=== PATIENT | male | born 1980 | race Two or more races ===

== ENCOUNTER 2022-10-24 12:12 | Emergency (ER) | payer OTHER, SELFPAY ==
--- NOTE | ~2022-10-24 | XR_ITS ---
EXAMINATION: XR CHEST CLINICAL INFORMATION: Chest pain and SOB COMPARISON: Chest 12/23/2017 TECHNIQUE: Frontal view of the chest was obtained. FINDINGS: No significant abnormality is noted involving the heart, lungs, mediastinum, bony thorax or soft tissues. There is a loop recorder in the left anterior chest wall XR/XR chest 1V IMPRESSION: Unremarkable chest examination.
--- NOTE | 2022-10-24 12:19 | ECG_ITS ---
Test Reason : SOB Blood Pressure : / mmHG Vent. Rate : 072 BPM Atrial Rate : 072 BPM P-R Int : 152 ms QRS Dur : 174 ms QT Int : 438 ms P-R-T Axes : 044 -76 003 degrees QTc Int : 479 ms Normal sinus rhythm Left axis deviation Right bundle branch block Abnormal ECG When compared to the previous EKG of No significant changes seen Referred By: Rodolfo Crandall Electronically Signed By:Rk Phoenix
--- NOTE | 2022-10-24 12:20 | ED_ITS ---
HPI - General Adult General Chief complaint: General Medical <SRIDHAR Freitas - Last Filed: 10/24/22 12:22> Stated complaint: Diff breathing/Rash on face <SRIDHAR Freitas Last Filed: 10/24/22 12:22> Time Seen by Provider: 10/24/22 14:08 <SRIDHAR Freitas - Last Filed: 10/24/22 12:22> Source: patient <SRIDHAR Tan Last Filed: 10/24/22 16:22> Mode of arrival: ambulatory <SRIDHAR Tan Last Filed: 10/24/22 16:22> Limitations: no limitations <SRIDHAR Tan Last Filed: 10/24/22 16:22> History of Present Illness HPI narrative: Patient is a 42 year old assigned male at with no reported medical history presenting to the emergency department today with watery eyes and fatigue. Patient states that over the last few days he has had watery eyes and general fatigue. Patient denies any current dizziness, lightheadedness, abdominal pain, nausea, vomiting, fever, chills, blurry vision, double vision, loss of vision, chest pain, difficulty breathing, shortness of breath, back pain, night sweats, pain with urination, increased urinary frequency, increased urinary urgency, blood in his urine or stool, syncope or a near syncopal episode, recent trauma or falls, bowel incontinence, bladder incontinence, bowel retention, bladder retention, or any other complaints at this time. <SRIDHAR Tan Last Filed: 10/24/22 16:22> Onset (ago): day(s) <SRIDHAR Tan - Last Filed: 10/24/22 16:22> Location: eyes <SRIDHAR Tan Last Filed: 10/24/22 16:22> Severity: mild <SRIDHAR Tan Last Filed: 10/24/22 16:22> Severity scale (1-10): 2 <SRIDHAR Tan Last Filed: 10/24/22 16:22> Relieving factors: none <SRIDHAR Tan Last Filed: 10/24/22 16:22> Exacerbating factors: none <SRIDHAR Tan Last Filed: 10/24/22 16:22> Associated symptoms: denies other symptoms <SRIDHAR Tan Last Filed: 10/24/22 16:22> Treatments prior to arrival: none <SRIDHAR Tan Last Filed: 10/24/22 16:22> Related Data Home medications: Previous Rx's Medication Instructions Recorded loratadine 10 mg tablet 10 mg PO DAILY PRN allergic 10/24/22 symptoms #14 tabs <SRIDHAR Freitas Last Filed: 10/24/22 12:22> Allergies/adverse reactions: Allergies Allergy/AdvReac Type Severity Reaction Status Date / Time latex [LATEX] Allergy Unknown RASH, Unverified 06/28/21 15:26 SHORTNESS OF BREATH <SRIDHAR Freitas Last Filed: 10/24/22 12:22> Review of Systems Constitutional: Constitutional: Reports no additional constitutional complaints, Denies chills, Denies fever(s) and Denies night sweats <SRIDHAR Tan Last Filed: 10/24/22 16:22> Eyes: Eyes: Reports no additional eye complaints, Denies blurry vision, Denies change in vision, Denies diplopia, Denies eye discharge, Reports irritation, Denies loss of vision and Denies eye pain <SRIDHAR Tan Last Filed: 10/24/22 16:22> ENT: Denies dizziness <SRIDHAR Tan Last Filed: 10/24/22 16:22> Cardiovascular: Cardiovascular: Reports no additional cardiovascular complaints, Denies chest pain, Denies lightheadedness, Denies Loss of Consciousness and Denies dyspnea <SRIDHAR Tan Last Filed: 10/24/22 16:22> Respiratory: Respiratory: Reports no additional respiratory complaints and Denies dyspnea <SRIDHAR Tan Last Filed: 10/24/22 16:22> Gastrointestinal: Gastrointestinal: Reports no additional gastrointestinal complaints, Denies abdominal pain, Denies melena, Denies hematochezia, Denies change in bowel habits and Denies change in stool character <SRIDHAR Tan Last Filed: 10/24/22 16:22> Genitourinary: Genitourinary: Reports no additional male genitourinary complaints, Denies hematuria, Denies oliguria, Denies difficulty urinating, Denies dysuria, Denies urinary frequency, Denies urinary hesitancy, Denies urinary incontinence and Denies urinary urgency <SRIDHAR Tan - Last Filed: 10/24/22 16:22> Musculoskeletal: Musculoskeletal: Reports no additional musculoskeletal comp laints, Denies numbness and Denies tingling <SRIDHAR Tan - Last Filed: 10/24/22 16:22> Neurologic: Denies dizziness, Denies loss of vision, Denies numbness and Denies tingling <SRIDHAR Tan - Last Filed: 10/24/22 16:22> Psychiatric: Psychiatric: Reports no additional psychiatric complaints <SRIDHAR Tan - Last Filed: 10/24/22 16:22> Endocrine: Endocrine: Reports no additional endocrine complaints <SRIDHAR Tan - Last Filed: 10/24/22 16:22> Hematologic/Lymphatic: Hematologic/Lymphatic: Reports no additional hematologic/lymphatic complaints <SRIDHAR Tan - Last Filed: 10/24/22 16:22> Allergic/Immunologic: Allergic/Immunologic: Reports no additional allergic/immunologic complaints <SRIDHAR Tan - Last Filed: 10/24/22 16:22> [facility] Past Medical History Attestation statement: The following information was validated with the patient. <SRIDHAR Tan - Last Filed: 10/24/22 16:22> Source: old records reviewed and nursing notes reviewed <SRIDHAR Tan - Last Filed: 10/24/22 16:22> Social History Social History: Social History Advance Directives: No Advance Directives Information Provided: Yes <SRIDHAR Freitas - Last Filed: 10/24/22 12:22> Physical Exam ED Vital Signs: Vital Signs - 24 hr 10/24/22 12:27 Temperature 97.2 F Pulse Rate 81 Respiratory Rate 15 Blood Pressure 113/79 Pulse Oximetry 98 Oxygen Delivery Method Room Air BMI result Body Mass Index 31.6 <SRIDHAR Freitas - Last Filed: 10/24/22 12:22> Vital Signs - 24 hr 10/24/22 12:27 Temperature 97.2 F Pulse Rate 81 Respiratory Rate 15 Blood Pressure 113/79 Pulse Oximetry 98 Oxygen Delivery Method Room Air BMI result Body Mass Index 31.6 <SRIDHAR Tan - Last Filed: 10/24/22 16:22> Const General: cooperative, no acute distress, alert and awake <SRIDHAR Tan - Last Filed: 10/24/22 16:22> Nutritional Appearance: well nourished <SRIDHAR Tan - Last Filed: 10/24/22 16:22> Orientation/consciousness: patient oriented x3 <SRIDHAR Tan - Last Filed: 10/24/22 16:22> Limitations: no limitations <SRIDHAR Tan - Last Filed: 10/24/22 16:22> HENMT Head: Yes normal to inspection and Yes atraumatic <SRIDHAR Tan - Last Filed: 10/24/22 16:22> Ears: hearing grossly normal bilaterally and external ears normal <SRIDHAR Tan - Last Filed: 10/24/22 16:22> General nose exam: Normal external nose present, no nasal discharge noted and no epistaxis <SRIDHAR Tan - Last Filed: 10/24/22 16:22> Face and sinus: Yes normal facial exam, No abrasion and No laceration <SRIDHAR Tan - Last Filed: 10/24/22 16:22> Mouth: Normal oral and palatal mucosa present, no drooling and no muffled voice <SRIDHAR Tan - Last Filed: 10/24/22 16:22> Eyes General: appearance normal, both eyes and all related structures <SRIDHAR Tan - Last Filed: 10/24/22 16:22> Periorbital: periorbital findings normal <SRIDHAR Tan - Last Filed: 10/24/22 16:22> Eyelids: Yes eyelids normal <SRIDHAR Tan - Last Filed: 10/24/22 16:22> Conjunctivae: conjunctivae normal <SRIDHAR Tan - Last Filed: 10/24/22 16:22> Pupils: Equal, round and reactive pupils present <SRIDHAR Tan - Last Filed: 10/24/22 16:22> EOM: EOMs intact bilaterally <Juany Danielreina NE - Last Filed: 10/24/22 16:22> Neck Neck: Yes normal visual inspection, Yes full ROM and Yes no lymphadenopathy <Juany Danielreina NE - Last Filed: 10/24/22 16:22> Chest Chest palpation & inspection: normal inspection of the chest <Juanyolayinka Danielreina NE - Last Filed: 10/24/22 16:22> Resp Effort & Inspection: normal respiratory effort and able to speak in complete sentences <Juany Danielreina NE - Last Filed: 10/24/22 16:22> Auscultation: clear to auscultation bilaterally <Juanyolayinka Danielreina NE - Last Filed: 10/24/22 16:22> Cardio Rate: regular rate <Juany Danielreina NE - Last Filed: 10/24/22 16:22> Rhythm: regular rhythm <Juany Danielreina NE - Last Filed: 10/24/22 16:22> GI Inspection: Yes normal to inspection <Juanyolayinka Danielreina NE - Last Filed: 10/24/22 16:22> Palpation (GI): Soft to palpation, not firm, nontender, no guarding and not rigid <Juany Danielreina NE - Last Filed: 10/24/22 16:22> Neuro General: patient oriented x3 and moves all extremities <Juany Danielreina NE - Last Filed: 10/24/22 16:22> Cranial nerves: Yes Equal, round and reactive pupils present <Juanyolayinka Danielreina NE - Last Filed: 10/24/22 16:22> Cognition (Neuro): normal cognition <Juany Danielreina NE - Last Filed: 10/24/22 16:22> Motor exam (neuro): 5/5 motor strength present throughout <Juany Danielreina NE - Last Filed: 10/24/22 16:22> Sensory Exam: Normal double simultaneous stimulation for sensation <Juany Danielreina NE - Last Filed: 10/24/22 16:22> Coordination: [id number] test normal <Juanyolayinka DanielSRIDHAR huang - Last Filed: 10/24/22 16:22> Extrem General: Yes normal to inspection, Yes full ROM and Yes capillary refill normal <SRIDHAR Tan - Last Filed: 10/24/22 16:22> Psych Appearance: grossly normal <SRIDHAR Tan - Last Filed: 10/24/22 16:22> Mental Status: mental status grossly normal <SRIDHAR Tan - Last Filed: 10/24/22 16:22> Affect: normal affect <SRIDHAR Tan - Last Filed: 10/24/22 16:22> Attitude: cooperative <SRIDHAR Tan - Last Filed: 10/24/22 16:22> Thought process: Normal thought process present <SRIDHAR Tan - Last Filed: 10/24/22 16:22> Thought content: Normal thought content present <SRIDHAR Tan - Last Filed: 10/24/22 16:22> Insight: Good insight present (Psych) <SRIDHAR Tan - Last Filed: 10/24/22 16:22> Course Course Course Narrative: This is an RME: Additional HPI, ROS, PE not included below will be deferred to primary provider. 42-year-old male presents to the emergency department with complaints of fatigue, malaise, rash to face, shortness of breath, unintentional weight loss X 9 days. patient reports that 9 days ago he flew from [place] and since then has been having shortness of breath in all the symptoms. Reports he has lost 25 lb in a week. Multiple sick contacts at home. No history of blood clots. Physical exam benign plan labs, EKG, troponin, chest x-ray, viral testing will obtain D-dimer as patient did have recent travel and is short of breath <SRIDHAR Freitas - Last Filed: 10/24/22 12:22> Medical Decision Making Medical Decision Making MDM Narrative: Patient is a 42 year old assigned male at with no reported medical history presenting to the emergency department today with watery eyes. Patient's physical exam was unremarkable. Patient's blood work was unremarkable. Patient's EKG was unremarkable. Patient's chest x-ray showed no acute process. I explained my physical exam findings as well as all test results to the patient. I answered all questions asked by the patient. I stressed the importance of the patient taking his medication as prescribed. I stressed the importance of the patient following up with his primary care provider. I stressed the importance of the patient returning to the emergency department immediately if his symptoms were to worsen or if he were to develop any dizziness, shortness of breath, difficulty breathing, chest pain, blurry vision, loss of vision, nausea, vomiting, abdominal pain, fever, chills, back pain, or any other complaints. Patient verbalized agreement and understanding with this treatment plan and discharge. <SRIDHAR Tan - Last Filed: 10/24/22 16:22> Differential Diagnosis Differential Diagnoses: The differential diagnosis associated with the presentation includes <SRIDHAR Tan - Last Filed: 10/24/22 16:22> allergies <SRIDHAR Tan - Last Filed: 10/24/22 16:22> Lab Data MDM Lab Attestation statement: I reviewed the patient's lab results. <SRIDHAR Tan - Last Filed: 10/24/22 16:22> Result Diagrams: 10/24/22 12:44 10/24/22 12:44 <SRIDHAR Freitas - Last Filed: 10/24/22 12:22> Labs: Lab Results 10/24/22 10/24/22 10/24/22 Range/Units 12:44 12:44 12:44 WBC 8.6 (4.8-10.8) X10*3/uL RBC 4.96 (4.60-5.80) X10*6/uL Hgb 14.5 (14.0-18.0) g/dl Hct 44.5 (42.0-52.0) % MCV 89.7 (80.0-98.0) fL MCH 29.2 (27.0-33.0) pg MCHC 32.6 (31.0-36.0) g/dl RDW 13.2 (11.0-16.0) % Plt Count 373 (160-400) X10*3/uL MPV 9.1 L (9.4-12.4) fL Immature Gran % (Auto) 0.2 (0.0-0.4) % Neut % (Auto) 62.0 (45-73) % Lymph % (Auto) 25.9 (20-40) % [place] % (Auto) 6.9 (2-11) % Eos % (Auto) 4.3 H (0-4) % Baso % (Auto) 0.7 (0-2) % Lymph # (Auto) 2.2 (1.2-4.9) X10*3/uL [place] # (Auto) 0.6 (0.1-1.2) X10*3/uL Eos # (Auto) 0.4 (0.0-0.4) X10*3/uL Baso # (Auto) 0.1 (0.0-0.2) X10*3/uL Abs Immat Gran (auto) 0.02 (0.00-0.03) X10*3/uL Absolute Neuts (auto) 5.3 (2.0-8.3) x10*3/uL Absolute Nucleated RBC 0.000 (0.0-0.012) X10*3/uL Nucleated RBC % (auto) 0.0 (0.0-0.2) /100WBC D-Dimer High Sensitivty < 150 NG/ML Sodium 139 (135-145) mmol/L Potassium 3.5 (3.3-5.1) mmol/L Chloride 98 (96-108) mmol/L Carbon Dioxide 30 H (22-29) mmol/L Anion Gap 15 (12-20) BUN 14 (9-16) mg/dL Creatinine 1.10 (0.5-1.4) mg/dL Estim Creat Clear Calc 101.5 Estimated GFR > 60 Random Glucose 97 (60-115) mg/dL Calcium 9.4 (8.4-10.2) mg/dL Magnesium 2.2 (1.6-2.6) mg/dL Total Bilirubin 0.6 (0.0-1.0) mg/dL AST 44 H (5-37) U/L ALT 107 H (0-40) U/L Alkaline Phosphatase 181 H (39-117) U/L Troponin I High Sens (<3.5-35.0) ng/L B-Natriuretic Peptide (<100) pg/mL Total Protein 7.1 (6.5-8.0) g/dL Albumin 4.4 (3.5-5.0) g/dL COVID-19 (MAXX) (Negative) COVID-19 Clin Com Influenza Type A (TRANG) (Negative) Influenza Type B (TRANG) (Negative) Influenza A & B Note 10/24/22 10/24/22 10/24/22 Range/Units 12:44 12:44 12:44 WBC (4.8-10.8) X10*3/uL RBC (4.60-5.80) X10*6/uL Hgb (14.0-18.0) g/dl Hct (42.0-52.0) % MCV (80.0-98.0) fL MCH (27.0-33.0) pg MCHC (31.0-36.0) g/dl RDW (11.0-16.0) % Plt Count (160-400) X10*3/uL MPV (9.4-12.4) fL Immature Gran % (Auto) (0.0-0.4) % Neut % (Auto) (45-73) % Lymph % (Auto) (20-40) % [place] % (Auto) (2-11) % Eos % (Auto) (0-4) % Baso % (Auto) (0-2) % Lymph # (Auto) (1.2-4.9) X10*3/uL [place] # (Auto) (0.1-1.2) X10*3/uL Eos # (Auto) (0.0-0.4) X10*3/uL Baso # (Auto) (0.0-0.2) X10*3/uL Abs Immat Gran (auto) (0.00-0.03) X10*3/uL Absolute Neuts (auto) (2.0-8.3) x10*3/uL Absolute Nucleated RBC (0.0-0.012) X10*3/uL Nucleated RBC % (auto) (0.0-0.2) /100WBC D-Dimer High Sensitivty NG/ML Sodium (135-145) mmol/L Potassium (3.3-5.1) mmol/L Chloride (96-108) mmol/L Carbon Dioxide (22-29) mmol/L Anion Gap (12-20) BUN (9-16) mg/dL Creatinine (0.5-1.4) mg/dL Estim Creat Clear Calc Estimated GFR Random Glucose (60-115) mg/dL Calcium (8.4-10.2) mg/dL Magnesium (1.6-2.6) mg/dL Total Bilirubin (0.0-1.0) mg/dL AST (5-37) U/L ALT (0-40) U/L Alkaline Phosphatase (39-117) U/L Troponin I High Sens 2.9 (<3.5-35.0) ng/L B-Natriuretic Peptide 18 (<100) pg/mL Total Protein (6.5-8.0) g/dL Albumin (3.5-5.0) g/dL COVID-19 (MAXX) Negative (Negative) COVID-19 Clin Com See Note Influenza Type A (TRANG) (Negative) Influenza Type B (TRANG) (Negative) Influenza A & B Note 10/24/22 Range/Units 13:37 WBC (4.8-10.8) X10*3/uL RBC (4.60-5.80) X10*6/uL Hgb (14.0-18.0) g/dl Hct (42.0-52.0) % MCV (80.0-98.0) fL MCH (27.0-33.0) pg MCHC (31.0-36.0) g/dl RDW (11.0-16.0) % Plt Count (160-400) X10*3/uL MPV (9.4-12.4) fL Immature Gran % (Auto) (0.0-0.4) % Neut % (Auto) (45-73) % Lymph % (Auto) (20-40) % [place] % (Auto) (2-11) % Eos % (Auto) (0-4) % Baso % (Auto) (0-2) % Lymph # (Auto) (1.2-4.9) X10*3/uL [place] # (Auto) (0.1-1.2) X10*3/uL Eos # (Auto) (0.0-0.4) X10*3/uL Baso # (Auto) (0.0-0.2) X10*3/uL Abs Immat Gran (auto) (0.00-0.03) X10*3/uL Absolute Neuts (auto) (2.0-8.3) x10*3/uL Absolute Nucleated RBC (0.0-0.012) X10*3/uL Nucleated RBC % (auto) (0.0-0.2) /100WBC D-Dimer High Sensitivty NG/ML Sodium (135-145) mmol/L Potassium (3.3-5.1) mmol/L Chloride (96-108) mmol/L Carbon Dioxide (22-29) mmol/L Anion Gap (12-20) BUN (9-16) mg/dL Creatinine (0.5-1.4) mg/dL Estim Creat Clear Calc Estimated GFR Random Glucose (60-115) mg/dL Calcium (8.4-10.2) mg/dL Magnesium (1.6-2.6) mg/dL Total Bilirubin (0.0-1.0) mg/dL AST (5-37) U/L ALT (0-40) U/L Alkaline Phosphatase (39-117) U/L Troponin I High Sens (<3.5-35.0) ng/L B-Natriuretic Peptide (<100) pg/mL Total Protein (6.5-8.0) g/dL Albumin (3.5-5.0) g/dL COVID-19 (MAXX) (Negative) COVID-19 Clin Com Influenza Type A (TRANG) Negative (Negative) Influenza Type B (TRANG) Negative (Negative) Influenza A & B Note See Note <SRIDHAR Freitas - Last Filed: 10/24/22 12:22> Lab Results 10/24/22 10/24/22 10/24/22 Range/Units 12:44 12:44 12:44 WBC 8.6 (4.8-10.8) X10*3/uL RBC 4.96 (4.60-5.80) X10*6/uL Hgb 14.5 (14.0-18.0) g/dl Hct 44.5 (42.0-52.0) % MCV 89.7 (80.0-98.0) fL MCH 29.2 (27.0-33.0) pg MCHC 32.6 (31.0-36.0) g/dl RDW 13.2 (11.0-16.0) % Plt Count 373 (160-400) X10*3/uL MPV 9.1 L (9.4-12.4) fL Immature Gran % (Auto) 0.2 (0.0-0.4) % Neut % (Auto) 62.0 (45-73) % Lymph % (Auto) 25.9 (20-40) % [place] % (Auto) 6.9 (2-11) % Eos % (Auto) 4.3 H (0-4) % Baso % (Auto) 0.7 (0-2) % Lymph # (Auto) 2.2 (1.2-4.9) X10*3/uL [place] # (Auto) 0.6 (0.1-1.2) X10*3/uL Eos # (Auto) 0.4 (0.0-0.4) X10*3/uL Baso # (Auto) 0.1 (0.0-0.2) X10*3/uL Abs Immat Gran (auto) 0.02 (0.00-0.03) X10*3/uL Absolute Neuts (auto) 5.3 (2.0-8.3) x10*3/uL Absolute Nucleated RBC 0.000 (0.0-0.012) X10*3/uL Nucleated RBC % (auto) 0.0 (0.0-0.2) /100WBC D-Dimer High Sensitivty < 150 NG/ML Sodium 139 (135-145) mmol/L Potassium 3.5 (3.3-5.1) mmol/L Chloride 98 (96-108) mmol/L Carbon Dioxide 30 H (22-29) mmol/L Anion Gap 15 (12-20) BUN 14 (9-16) mg/dL Creatinine 1.10 (0.5-1.4) mg/dL Estim Creat Clear Calc 101.5 Estimated GFR > 60 Random Glucose 97 (60-115) mg/dL Calcium 9.4 (8.4-10.2) mg/dL Magnesium 2.2 (1.6-2.6) mg/dL Total Bilirubin 0.6 (0.0-1.0) mg/dL AST 44 H (5-37) U/L ALT 107 H (0-40) U/L Alkaline Phosphatase 181 H (39-117) U/L Troponin I High Sens (<3.5-35.0) ng/L B-Natriuretic Peptide (<100) pg/mL Total Protein 7.1 (6.5-8.0) g/dL Albumin 4.4 (3.5-5.0) g/dL COVID-19 (MAXX) (Negative) COVID-19 Clin Com Influenza Type A (TRANG) (Negative) Influenza Type B (TRANG) (Negative) Influenza A & B Note 10/24/22 10/24/22 10/24/22 Range/Units 12:44 12:44 12:44 WBC (4.8-10.8) X10*3/uL RBC (4.60-5.80) X10*6/uL Hgb (14.0-18.0) g/dl Hct (42.0-52.0) % MCV (80.0-98.0) fL MCH (27.0-33.0) pg MCHC (31.0-36.0) g/dl RDW (11.0-16.0) % Plt Count (160-400) X10*3/uL MPV (9.4-12.4) fL Immature Gran % (Auto) (0.0-0.4) % Neut % (Auto) (45-73) % Lymph % (Auto) (20-40) % [place] % (Auto) (2-11) % Eos % (Auto) (0-4) % Baso % (Auto) (0-2) % Lymph # (Auto) (1.2-4.9) X10*3/uL [place] # (Auto) (0.1-1.2) X10*3/uL Eos # (Auto) (0.0-0.4) X10*3/uL Baso # (Auto) (0.0-0.2) X10*3/uL Abs Immat Gran (auto) (0.00-0.03) X10*3/uL Absolute Neuts (auto) (2.0-8.3) x10*3/uL Absolute Nucleated RBC (0.0-0.012) X10*3/uL Nucleated RBC % (auto) (0.0-0.2) /100WBC D-Dimer High Sensitivty NG/ML Sodium (135-145) mmol/L Potassium (3.3-5.1) mmol/L Chloride (96-108) mmol/L Carbon Dioxide (22-29) mmol/L Anion Gap (12-20) BUN (9-16) mg/dL Creatinine (0.5-1.4) mg/dL Estim Creat Clear Calc Estimated GFR Random Glucose (60-115) mg/dL Calcium (8.4-10.2) mg/dL Magnesium (1.6-2.6) mg/dL Total Bilirubin (0.0-1.0) mg/dL AST (5-37) U/L ALT (0-40) U/L Alkaline Phosphatase (39-117) U/L Troponin I High Sens 2.9 (<3.5-35.0) ng/L B-Natriuretic Peptide 18 (<100) pg/mL Total Protein (6.5-8.0) g/dL Albumin (3.5-5.0) g/dL COVID-19 (MAXX) Negative (Negative) COVID-19 Clin Com See Note Influenza Type A (TRANG) (Negative) Influenza Type B (TRANG) (Negative) Influenza A & B Note 10/24/22 Range/Units 13:37 WBC (4.8-10.8) X10*3/uL RBC (4.60-5.80) X10*6/uL Hgb (14.0-18.0) g/dl Hct (42.0-52.0) % MCV (80.0-98.0) fL MCH (27.0-33.0) pg MCHC (31.0-36.0) g/dl RDW (11.0-16.0) % Plt Count (160-400) X10*3/uL MPV (9.4-12.4) fL Immature Gran % (Auto) (0.0-0.4) % Neut % (Auto) (45-73) % Lymph % (Auto) (20-40) % [place] % (Auto) (2-11) % Eos % (Auto) (0-4) % Baso % (Auto) (0-2) % Lymph # (Auto) (1.2-4.9) X10*3/uL [place] # (Auto) (0.1-1.2) X10*3/uL Eos # (Auto) (0.0-0.4) X10*3/uL Baso # (Auto) (0.0-0.2) X10*3/uL Abs Immat Gran (auto) (0.00-0.03) X10*3/uL Absolute Neuts (auto) (2.0-8.3) x10*3/uL Absolute Nucleated RBC (0.0-0.012) X10*3/uL Nucleated RBC % (auto) (0.0-0.2) /100WBC D-Dimer High Sensitivty NG/ML Sodium (135-145) mmol/L Potassium (3.3-5.1) mmol/L Chloride (96-108) mmol/L Carbon Dioxide (22-29) mmol/L Anion Gap (12-20) BUN (9-16) mg/dL Creatinine (0.5-1.4) mg/dL Estim Creat Clear Calc Estimated GFR Random Glucose (60-115) mg/dL Calcium (8.4-10.2) mg/dL Magnesium (1.6-2.6) mg/dL Total Bilirubin (0.0-1.0) mg/dL AST (5-37) U/L ALT (0-40) U/L Alkaline Phosphatase (39-117) U/L Troponin I High Sens (<3.5-35.0) ng/L B-Natriuretic Peptide (<100) pg/mL Total Protein (6.5-8.0) g/dL Albumin (3.5-5.0) g/dL COVID-19 (MAXX) (Negative) COVID-19 Clin Com Influenza Type A (TRANG) Negative (Negative) Influenza Type B (TRANG) Negative (Negative) Influenza A & B Note See Note <SRIDHAR Tan - Last Filed: 10/24/22 16:22> Independent Interpretation I performed an independent interpretation of an: EKG <SRIDHAR Tan - Last Filed: 10/24/22 16:22> Interpretation: Vent. Rate: 072 BPM ? ? Atrial Rate: 072 BPM P-R Int: 152 ms? QRS Dur: 174 ms QT Int: 438 ms ? ? ? P-R-T Axes: 044 -76 003 degrees QTc Int: 479 ms ? Normal sinus rhythm Left axis deviation Right bundle branch block Abnormal ECG When compared to the previous EKG of No significant changes seen ? Electronically Signed By:Rk Phoenix Dictated By: Rk Phoenix MD Signed By: Electronically signed by Rk Phoenix MD 10/24/22 1604 <SRIDHAR Tan - Last Filed: 10/24/22 16:22> Radiology Impression Radiologist Impression: My interpretation is in agreement with the radiologist's impression of this imaging study. EXAMINATION: XR CHEST CLINICAL INFORMATION: Chest pain and SOB COMPARISON: Chest 12/23/2017 TECHNIQUE: Frontal view of the chest was obtained. FINDINGS: No significant abnormality is noted involving the heart, lungs, mediastinum, bony thorax or soft tissues. There is a loop recorder in the left anterior chest wall XR/XR chest 1V IMPRESSION: Unremarkable chest examination. Dictated By: Adeel Bradford MD Signed By: Electronically signed by Adeel Bradford MD 10/24/22 1301 <SRIDHAR Tan - Last Filed: 10/24/22 16:22> Discharge Plan Discharge Clinical Impression: Allergies <SRIDHAR Freitas Last Filed: 10/24/22 12:22> Patient Disposition: Home, Self-Care <SRIDHAR Freitas Last Filed: 10/24/22 12:22> Instructions: Allergies (ED) <SRIDHAR Freitas Last Filed: 10/24/22 12:22> Additional Instructions: Follow up with your primary care provider. Return to the emergency department immediately if your symptoms worsen or if you develop any dizziness, shortness of breath, difficulty breathing, chest pain, blurry vision, loss of vision, nausea, vomiting, abdominal pain, fever, chills, back pain, or any other complaints. Alondra un seguimiento con chin proveedor de atenci?n primaria. Regrese al departame nto de emergencias de inmediato si jonathan s?ntomas empeoran o si presenta mareos, falta de aire, dificultad para respirar, dolor de pecho, visi?n borrosa, p?rdida de la visi?n, n?useas, v?mitos, dolor abdominal, fiebre, escalofr?os, dolor de espalda o cualquier otras quejas. <SRIDHAR Freitas - Last Filed: 10/24/22 12:22> Prescriptions: New loratadine 10 mg tablet 10 mg PO DAILY PRN (Reason: allergic symptoms) Qty: 14 0RF <SRIDHAR Freitas - Last Filed: 10/24/22 12:22> Referrals: [facility] [place] [facility] [Provider Group] (Call to establish and follow up with a primary care provider. If you already have a primary care provider, please follow up with them. Llame para establecer y hacer un seguimiento con un proveedor de atenci?n primaria. Si ya tiene un proveedor de atenci?n primaria, alondra un seguimiento con ?l. ) [facility] [place] [Provider Group] (Call to establish and follow up with a primary care provider. If you already have a primary care provider, please follow up with them. Llame para establecer y hacer un seguimiento con un proveedor de atenci?n pr imaria. Si ya tiene un proveedor de atenci?n primaria, alondra un seguimiento con ?l. ) [facility] [place] [Provider Group] (Call to establish and follow up with a primary care provider. If you already have a primary care provider, please follow up with them. Llame para establecer y hacer un seguimiento con un proveedor de atenci?n primaria. Si ya tiene un proveedor de atenci?n primaria, alondra un seguimiento con ?l. ) <SRIDHAR Freitas - Last Filed: 10/24/22 12:22> Stand Alone Forms: Work/School Release <SRIDHAR Freitas - Last Filed: 10/24/22 12:22> Interventions: ED Discharge Assessment Last Done: 10/24/22 14:50 <SRIDHAR Freitas - Last Filed: 10/24/22 12:22> Discharge Date/Time: 10/24/22 14:51 <SRIDHAR Freitas - Last Filed: 10/24/22 12:22> Print Language: Albanian <SRIDHAR Freitas - Last Filed: 10/24/22 12:22>
[2022-10-24 12:27] VITALS: BP 113/79; PULSE 81; RESP 15; TEMP 36.2; O2SAT 98; BMI 31.6
[2022-10-24 12:56] LABS: MANUAL DIFF FLAG NO
[2022-10-24 12:58] LABS: Basophils Absolute Auto 0.1 X10*3/uL (0.0-0.2); Basophils Percent Auto 0.7 % (0-2); Eosinophils Absolute Auto 0.4 X10*3/uL (0.0-0.4); Eosinophils Percent Auto 4.3 % (0-4); Hematocrit 44.5 % (42.0-52.0); Hemoglobin 14.5 g/dl (14.0-18.0); Imm Gran Abs Auto 0.02 X10*3/uL (0.00-0.03); Imm Gran Pct Auto 0.2 % (0.0-0.4); Lymphocytes Absolute Auto 2.2 X10*3/uL (1.2-4.9); Lymphocytes Percent Auto 25.9 % (20-40); Mean Corpuscular HGB Conc 32.6 g/dl (31.0-36.0); Mean Corpuscular Hemoglobin 29.2 pg (27.0-33.0); Mean Corpuscular Volume 89.7 fL (80.0-98.0); Mean Platelet Volume 9.1 fL (9.4-12.4); Monocytes Absolute Auto 0.6 X10*3/uL (0.1-1.2); Monocytes Percent Auto 6.9 % (2-11); Neutrophils Absolute Auto 5.3 x10*3/uL (2.0-8.3); Platelet Count 373 X10*3/uL (160-400); Red Blood Count 4.96 X10*6/uL (4.60-5.80); Red Cell Distribution Width 13.2 % (11.0-16.0); White Blood Count 8.6 X10*3/uL (4.8-10.8)
[2022-10-24 13:13] LABS: Alanine Aminotransferase 107 U/L (0-40); Albumin Level 4.4 g/dL (3.5-5.0); Alkaline Phosphatase 181 U/L (39-117); Anion Gap 15 (12-20); Aspartate Amino Transferase 44 U/L (5-37); Bilirubin Total 0.6 mg/dL (0.0-1.0); Blood Urea Nitrogen 14 mg/dL (9-16); Calcium 9.4 mg/dL (8.4-10.2); Carbon Dioxide 30 mmol/L (22-29); Chloride 98 mmol/L (96-108); Creatinine Clr Calc Pharmacy 101.5; Estimated Glomerular Filt Rate > 60; Glucose Random 97 mg/dL (60-115); Magnesium 2.2 mg/dL (1.6-2.6); Potassium 3.5 mmol/L (3.3-5.1); Sodium 139 mmol/L (135-145); Total Protein 7.1 g/dL (6.5-8.0)
[2022-10-24 13:15] LABS: COVID-19 Test Negative (Negative)
[2022-10-24 13:17] LABS: D Dimer High Sensitivity < 150 NG/ML
[2022-10-24 13:18] LABS: B Type Natriuretic Peptide 18 pg/mL (<100)
[2022-10-24 13:19] LABS: Troponin-I High Sensitivity 2.9 ng/L (<3.5-35.0)
[2022-10-24 14:06] LABS: IDNOW Serial# 08D9AD1C; Influenza A Negative (Negative); Influenza B2 Negative (Negative)
== END 2022-10-24 14:51 | disposition home or self-care (01) ==
PROVIDERS: Physician Assistant; Emergency Provider Emergency Medicine Emergency Medical Services
DX: T78.40XA Allergy, unspecified, initial encounter (principal); X58.XXXA Exposure to other specified factors, initial encounter; R06.02 Shortness of breath; I45.10 Unspecified right bundle-branch block; Z20.822 Contact with and (suspected) exposure to COVID-19
CPT/HCPCS: 36415; 71045; 80053; 83735; 83880; 84484; 85025; 85379; 87502; 87635; 93005; 99283